=== PATIENT | female | born 1930 | race Caucasian/White ===

== ENCOUNTER → 2016-06-01 | Outpatient (REF) | payer MEDICARE, MEDICAID ==
[~2016-06-01] MED LIST: AMLO10TA2 PO; ASPI81TA PO; ATOR40TA PO; ATRO1OPD OD; CARV6.25 PO; CEFD300CAP PO; DORZ2OPD OS; FURO40TA2 PO; HYDR10TAB PO; ICAPCAP PO; IRBE300T10 PO; LOTE0.5S OS; MAPA325T2 PO; OMEP20CA3 PO; REST0.05 OU; SERT-138 PO; SPIR25TA2 PO; [UNRECOGNIZED DRUG - CODE] OU
[2016-06-01 10:07] LABS: ANION GAP 11 MEQ/L (8-16); BLOOD UREA NITROGEN 15 MG/DL (7-18); CALCIUM LEVEL 9.1 MG/DL (8.8-10.2); CARBON DIOXIDE LEVEL 27 MEQ/L (21-32); CHLORIDE LEVEL 106 MEQ/L (98-107); CREATININE FOR GFR 0.87 MG/DL (0.55-1.02); GLOMERULAR FILTRATION RATE > 60.0 (>32); GLUCOSE, FASTING 121 MG/DL (83-110); POTASSIUM SERUM 4.2 MEQ/L (3.5-5.1); SODIUM LEVEL 144 MEQ/L (136-145)
== END ==
LOC: SKLAB5 08:49
PROVIDERS: ATTEND Family Medicine
DX: I50.9 Heart failure, unspecified (principal)

== ENCOUNTER → 2016-06-29 | Outpatient (REF) | payer MEDICARE, MEDICAID ==
[2016-06-29 09:03] LABS: ANION GAP 6 MEQ/L (8-16); BLOOD UREA NITROGEN 11 MG/DL (7-18); CALCIUM LEVEL 8.6 MG/DL (8.8-10.2); CARBON DIOXIDE LEVEL 30 MEQ/L (21-32); CHLORIDE LEVEL 109 MEQ/L (98-107); GLOMERULAR FILTRATION RATE > 60.0 (>32); GLUCOSE, FASTING 86 MG/DL (83-110); POTASSIUM SERUM 4.4 MEQ/L (3.5-5.1); SODIUM LEVEL 145 MEQ/L (136-145)
== END ==
LOC: SKLAB5 08:28
PROVIDERS: ATTEND Family Medicine
DX: I50.9 Heart failure, unspecified (principal)

== ENCOUNTER → 2016-08-29 | Outpatient (REF) | payer MEDICARE, MEDICAID ==
[2016-08-29 08:46] LABS: ANION GAP 8 MEQ/L (8-16); BLOOD UREA NITROGEN 17 MG/DL (7-18); CALCIUM LEVEL 8.7 MG/DL (8.8-10.2); CARBON DIOXIDE LEVEL 25 MEQ/L (21-32); CHLORIDE LEVEL 108 MEQ/L (98-107); CREATININE FOR GFR 0.88 MG/DL (0.55-1.02); GLOMERULAR FILTRATION RATE > 60.0 (>32); GLUCOSE, FASTING 107 MG/DL (83-110); POTASSIUM SERUM 4.1 MEQ/L (3.5-5.1); SODIUM LEVEL 141 MEQ/L (136-145); URIC ACID 8.2 MG/DL (2.6-6.0)
== END ==
LOC: SKLAB5 09:20
PROVIDERS: ATTEND Family Medicine
DX: N19 Unspecified kidney failure (principal)

== ENCOUNTER → 2016-09-03 | Outpatient (REF) | payer MEDICARE, MEDICAID | LOC: SKLAB5 11:50 | PROVIDERS: ATTEND Family Medicine | DX: R30.0 Dysuria (principal) ==

== ENCOUNTER → 2016-11-09 | Outpatient (REF) | payer MEDICARE, MEDICAID ==
[2016-11-09 10:39] LABS: ANION GAP 6 MEQ/L (8-16); BLOOD UREA NITROGEN 17 MG/DL (7-18); CALCIUM LEVEL 8.7 MG/DL (8.8-10.2); CARBON DIOXIDE LEVEL 26 MEQ/L (21-32); CHLORIDE LEVEL 106 MEQ/L (98-107); CREATININE FOR GFR 0.88 MG/DL (0.55-1.02); GLOMERULAR FILTRATION RATE > 60.0 (>32); GLUCOSE, FASTING 152 MG/DL (83-110); SODIUM LEVEL 138 MEQ/L (136-145)
== END ==
LOC: SKLAB5 07:20
PROVIDERS: ATTEND Family Medicine
DX: I50.9 Heart failure, unspecified (principal)

== ENCOUNTER → 2016-11-15 | Outpatient (REF) | payer MEDICARE, MEDICAID ==
[2016-11-15 13:11] LABS: BASO % 0.2 % (0.0-1.0); EOS # 0.1 K/mm3 (0.0-0.50); LARGE UNSTAINED CELL # 0.1 K/mm3 (0.0-0.4); LARGE UNSTAINED CELL % 1.7 % (0.0-4.0); LYMPH # 1.1 K/mm3 (1.5-4.5); LYMPH % 13.9 % (24.0-44.0); MEAN CORPUSCULAR HEMOGLOBIN 23.3 pg (27.0-33.0); MEAN CORPUSCULAR HGB CONC 29.9 g/dl (32.0-36.5); MEAN CORPUSCULAR VOLUME 77.7 fl (80.0-96.0); MONO # 0.4 K/mm3 (0.0-0.8); MONO % 5.6 % (0.0-5.0); NEUTROPHILS # 5.3 K/mm3 (1.8-7.7); NEUTROPHILS % 76.6 % (36.0-66.0); PLATELET COUNT, AUTOMATED 233 k/mm3 (150-450); RED CELL DISTRIBUTION WIDTH 16.5 % (11.5-14.5)
[2016-11-15 13:35] LABS: ANION GAP 8 MEQ/L (8-16); BLOOD UREA NITROGEN 15 MG/DL (7-18); CARBON DIOXIDE LEVEL 25 MEQ/L (21-32); CHLORIDE LEVEL 107 MEQ/L (98-107); CREATININE FOR GFR 0.85 MG/DL (0.55-1.02); GLOMERULAR FILTRATION RATE > 60.0 (>32); GLUCOSE, FASTING 114 MG/DL (83-110); POTASSIUM SERUM 4.6 MEQ/L (3.5-5.1); SODIUM LEVEL 140 MEQ/L (136-145)
== END ==
LOC: SKLAB5 11:52
PROVIDERS: ATTEND Family Medicine
DX: N39.0 Urinary tract infection, site not specified (principal)

== ENCOUNTER → 2016-11-17 | Outpatient (REF) | payer MEDICARE, MEDICAID | LOC: SKLAB5 06:55 | PROVIDERS: ATTEND Family Medicine | DX: F29 Unspecified psychosis not due to a substance or known physiological condition (principal); Z79.899 Other long term (current) drug therapy ==

== ENCOUNTER → 2016-11-30 | Outpatient (REF) | payer MEDICARE, MEDICAID ==
[~2016-11-30] MED LIST changes: -ATOR40TA PO; +ATOR40TA75 PO
[2016-11-30 10:16] LABS: MEAN CORPUSCULAR HEMOGLOBIN 23.2 pg (27.0-33.0); MEAN CORPUSCULAR HGB CONC 29.7 g/dl (32.0-36.5); MEAN CORPUSCULAR VOLUME 78.1 fl (80.0-96.0); RED CELL DISTRIBUTION WIDTH 16.8 % (11.5-14.5); WHITE BLOOD COUNT 8.6 K/mm3 (4.0-10.0)
[2016-11-30 10:45] LABS: ANION GAP 9 MEQ/L (8-16); BLOOD UREA NITROGEN 16 MG/DL (7-18); CALCIUM LEVEL 8.2 MG/DL (8.8-10.2); CARBON DIOXIDE LEVEL 21 MEQ/L (21-32); CHLORIDE LEVEL 108 MEQ/L (98-107); CREATININE FOR GFR 0.86 MG/DL (0.55-1.02); GLOMERULAR FILTRATION RATE > 60.0 (>32); GLUCOSE, FASTING 115 MG/DL (83-110); POTASSIUM SERUM 4.2 MEQ/L (3.5-5.1); SODIUM LEVEL 138 MEQ/L (136-145); URIC ACID 6.6 MG/DL (2.6-6.0)
== END ==
LOC: SKLAB5 08:25
PROVIDERS: ATTEND Family Medicine
DX: E26.9 Hyperaldosteronism, unspecified (principal); N19 Unspecified kidney failure; F03.90 Unspecified dementia, unspecified severity, without behavioral disturbance, psychotic disturbance, mood disturbance, and anxiety

== ENCOUNTER → 2016-12-20 | Outpatient (REF) | payer MEDICARE, MEDICAID | LOC: SKLAB5 22:28 | PROVIDERS: ATTEND Family Medicine | DX: R41.82 Altered mental status, unspecified (principal) ==

== ENCOUNTER → 2016-12-28 | Outpatient (REF) | payer MEDICARE, MEDICAID | LOC: SKLAB5 08:00 | PROVIDERS: ATTEND Family Medicine | DX: Z79.899 Other long term (current) drug therapy (principal) ==

== ENCOUNTER → 2017-02-19 | Outpatient (REF) | payer MEDICARE, MEDICAID | LOC: SKLAB5 14:00 | PROVIDERS: ATTEND Family Medicine | DX: R30.9 Painful micturition, unspecified (principal) ==

== ENCOUNTER → 2017-02-19 | Outpatient (REF) | payer MEDICARE, MEDICAID | LOC: SKLAB5 22:11 | PROVIDERS: ATTEND Family Medicine | DX: R30.9 Painful micturition, unspecified (principal) ==

== ENCOUNTER → 2017-03-01 | Outpatient (REF) | payer MEDICARE, MEDICAID ==
[2017-03-01 09:45] LABS: ANION GAP 8 MEQ/L (8-16); BLOOD UREA NITROGEN 12 MG/DL (7-18); CALCIUM LEVEL 8.9 MG/DL (8.8-10.2); CARBON DIOXIDE LEVEL 28 MEQ/L (21-32); CHLORIDE LEVEL 104 MEQ/L (98-107); CREATININE FOR GFR 0.65 MG/DL (0.55-1.02); GLOMERULAR FILTRATION RATE > 60.0 (>32); GLUCOSE, FASTING 82 MG/DL (83-110); POTASSIUM SERUM 4.4 MEQ/L (3.5-5.1); SODIUM LEVEL 140 MEQ/L (136-145); URIC ACID 4.9 MG/DL (2.6-6.0)
== END ==
LOC: SKLAB5 08:46
PROVIDERS: ATTEND Family Medicine
DX: I11.0 Hypertensive heart disease with heart failure (principal); I50.9 Heart failure, unspecified; M10.9 Gout, unspecified

== ENCOUNTER → 2017-05-06 | Outpatient (REF) | payer MEDICARE, MEDICAID | LOC: SKLAB5 21:08 | PROVIDERS: ATTEND Family Medicine | DX: R35.0 Frequency of micturition (principal); R30.0 Dysuria; R39.15 Urgency of urination ==

== ENCOUNTER → 2017-05-31 | Outpatient (REF) | payer MEDICARE, MEDICAID ==
[2017-05-31 09:06] LABS: HEMATOCRIT 29.3 % (36.0-47.0); HEMOGLOBIN 8.4 g/dl (12.0-16.0); MEAN CORPUSCULAR HEMOGLOBIN 22.6 pg (27.0-33.0); MEAN CORPUSCULAR HGB CONC 28.7 g/dl (32.0-36.5); MEAN CORPUSCULAR VOLUME 78.8 fl (80.0-96.0); PLATELET COUNT, AUTOMATED 188 10^3/uL (150-450); RED BLOOD COUNT 3.72 10^6/uL (4.00-5.40); RED CELL DISTRIBUTION WIDTH 16.9 % (11.5-14.5); WHITE BLOOD COUNT 6.6 10^3/uL (4.0-10.0)
[2017-05-31 09:25] LABS: ANION GAP 7 MEQ/L (8-16); BLOOD UREA NITROGEN 23 MG/DL (7-18); CALCIUM LEVEL 8.8 MG/DL (8.8-10.2); CARBON DIOXIDE LEVEL 25 MEQ/L (21-32); CHLORIDE LEVEL 109 MEQ/L (98-107); CHOLESTEROL LEVEL 207 MG/DL (<200); CHOLESTEROL RISK RATIO 5.048 (<5); CREATININE FOR GFR 0.92 MG/DL (0.55-1.02); GLOMERULAR FILTRATION RATE > 60.0 (>32); GLUCOSE, FASTING 139 MG/DL (83-110); HDL CHOLESTEROL 41 MG/DL (>40); NON-HDL-C 166 MG/DL; POTASSIUM SERUM 4.2 MEQ/L (3.5-5.1); SODIUM LEVEL 141 MEQ/L (136-145); TRIGLYCERIDES LEVEL 210 MG/DL (<150); URIC ACID 5.6 MG/DL (2.6-6.0)
== END ==
LOC: SKLAB5 07:53
DX: F03.90 Unspecified dementia, unspecified severity, without behavioral disturbance, psychotic disturbance, mood disturbance, and anxiety (principal); I50.9 Heart failure, unspecified; R56.9 Unspecified convulsions; E78.00 Pure hypercholesterolemia, unspecified
CPT/HCPCS: 84550

== ENCOUNTER → 2017-08-30 | Outpatient (REF) | payer MEDICARE, MEDICAID ==
[2017-08-30 08:39] LABS: ANION GAP 5 MEQ/L (8-16); BLOOD UREA NITROGEN 21 MG/DL (7-18); CALCIUM LEVEL 8.6 MG/DL (8.8-10.2); CARBON DIOXIDE LEVEL 25 MEQ/L (21-32); CHLORIDE LEVEL 112 MEQ/L (98-107); CREATININE FOR GFR 0.81 MG/DL (0.55-1.30); GLOMERULAR FILTRATION RATE > 60.0 (>32); GLUCOSE, FASTING 97 MG/DL (70-100); POTASSIUM SERUM 4.7 MEQ/L (3.5-5.1); SODIUM LEVEL 142 MEQ/L (136-145); URIC ACID 5.1 MG/DL (2.6-6.0)
== END ==
LOC: SKLAB5 07:35
DX: I50.9 Heart failure, unspecified (principal); M10.9 Gout, unspecified
CPT/HCPCS: 84550

== ENCOUNTER → 2017-09-25 | Outpatient (REF) | payer MEDICARE, MEDICAID ==
[2017-09-25 13:18] LABS: APPEARANCE, URINE TURBID (CLEAR); BACTERIA, URINE AUTO 3+ (NEGATIVE); BILIRUBIN, URINE AUTO NEGATIVE (NEGATIVE); BLOOD, URINE BLOOD 2+ (NEGATIVE); COLOR, URINE AMBER (YELLOW); GLUCOSE, URINE (UA) AUTO NEGATIVE (NEGATIVE); KETONE, URINE AUTO NEGATIVE (NEGATIVE); LEUKOCYTE ESTERASE, URINE AUTO 3+ (NEGATIVE); MUCUS, URINE LARGE (NEGATIVE); NITRITE, URINE AUTO NEGATIVE (NEGATIVE); PROTEIN, URINE AUTO 2+ mg/dL (NEGATIVE); RBC, URINE AUTO 61 /HPF (0-3); SPECIFIC GRAVITY URINE AUTO 1.009 (1.002-1.035); SQUAMOUS EPITHELIAL CELL UR AU 7 /HPF (0-6); UROBILINOGEN, URINE AUTO 0.2 mg/dL (0.0-2.0); WBC, URINE AUTO TNTC /HPF (0-3)
== END ==
LOC: SKLAB5 12:41
DX: R30.0 Dysuria (principal)
CPT/HCPCS: 81001

== ENCOUNTER → 2017-11-29 | Outpatient (REF) | payer MEDICARE, MEDICAID ==
[2017-11-29 08:46] LABS: HEMATOCRIT 28.8 % (36.0-47.0); HEMOGLOBIN 8.1 g/dl (12.0-15.5); MEAN CORPUSCULAR HEMOGLOBIN 23.8 pg (27.0-33.0); MEAN CORPUSCULAR HGB CONC 28.1 g/dl (32.0-36.5); MEAN CORPUSCULAR VOLUME 84.7 fl (80.0-96.0); PLATELET COUNT, AUTOMATED 185 10^3/uL (150-450); RED CELL DISTRIBUTION WIDTH 17.2 % (11.5-14.5); WHITE BLOOD COUNT 5.3 10^3/uL (4.0-10.0)
[2017-11-29 09:01] LABS: ANION GAP 6 MEQ/L (8-16); BLOOD UREA NITROGEN 16 MG/DL (7-18); CALCIUM LEVEL 8.5 MG/DL (8.8-10.2); CARBON DIOXIDE LEVEL 26 MEQ/L (21-32); CHLORIDE LEVEL 112 MEQ/L (98-107); CREATININE FOR GFR 0.82 MG/DL (0.55-1.30); GLOMERULAR FILTRATION RATE > 60.0 (>32); GLUCOSE, FASTING 119 MG/DL (70-100); SODIUM LEVEL 144 MEQ/L (136-145); URIC ACID 5.4 MG/DL (2.6-6.0)
== END ==
LOC: SKLAB5 07:21
DX: I50.9 Heart failure, unspecified (principal); J44.9 Chronic obstructive pulmonary disease, unspecified; F03.90 Unspecified dementia, unspecified severity, without behavioral disturbance, psychotic disturbance, mood disturbance, and anxiety
CPT/HCPCS: 84550

== ENCOUNTER → 2017-12-21 | Outpatient (REF) | payer MEDICARE, MEDICAID ==
[2017-12-22 10:28] LABS: APPEARANCE, URINE TURBID (CLEAR); BACTERIA, URINE AUTO 3+ (NEGATIVE); BILIRUBIN, URINE AUTO NEGATIVE (NEGATIVE); BLOOD, URINE BLOOD 2+ (NEGATIVE); COLOR, URINE YELLOW (YELLOW); GLUCOSE, URINE (UA) AUTO NEGATIVE (NEGATIVE); KETONE, URINE AUTO NEGATIVE (NEGATIVE); LEUKOCYTE ESTERASE, URINE AUTO 3+ (NEGATIVE); MUCUS, URINE SMALL (NEGATIVE); NITRITE, URINE AUTO NEGATIVE (NEGATIVE); PROTEIN, URINE AUTO 1+ mg/dL (NEGATIVE); RBC, URINE AUTO 6 /HPF (0-3); SPECIFIC GRAVITY URINE AUTO 1.012 (1.002-1.035); SQUAMOUS EPITHELIAL CELL UR AU 5 /HPF (0-6); UROBILINOGEN, URINE AUTO 0.2 mg/dL (0.0-2.0); WBC, URINE AUTO TNTC /HPF (0-3)
== END ==
LOC: M OPP 12-22 09:39 → SKLAB5 22:00
DX: N39.0 Urinary tract infection, site not specified (principal)
CPT/HCPCS: 81001

== ENCOUNTER → 2017-12-27 | Outpatient (REF) | payer MEDICARE, MEDICAID ==
[2017-12-27 08:43] LABS: FERRITIN 17 NG/ML (8-252)
== END ==
LOC: SKLAB5 09:23
DX: D64.9 Anemia, unspecified (principal)
CPT/HCPCS: 82728

== ENCOUNTER → 2018-02-28 | Outpatient (REF) | payer MEDICARE, MEDICAID ==
[2018-02-28 09:52] LABS: ANION GAP 8 MEQ/L (8-16); BLOOD UREA NITROGEN 19 MG/DL (7-18); CALCIUM LEVEL 8.4 MG/DL (8.8-10.2); CARBON DIOXIDE LEVEL 22 MEQ/L (21-32); CHLORIDE LEVEL 111 MEQ/L (98-107); CREATININE FOR GFR 1.18 MG/DL (0.55-1.30); GLOMERULAR FILTRATION RATE 46.2 (>32); GLUCOSE, FASTING 123 MG/DL (70-100); POTASSIUM SERUM 4.6 MEQ/L (3.5-5.1); SODIUM LEVEL 141 MEQ/L (136-145); URIC ACID 5.4 MG/DL (2.6-6.0)
== END ==
LOC: SKLAB5 08:13
DX: I50.9 Heart failure, unspecified (principal)
CPT/HCPCS: 84550

== ENCOUNTER → 2018-03-24 | Outpatient (REF) | payer MEDICARE, MEDICAID | LOC: M RAD 19:03 | DX: M25.552 Pain in left hip (principal) ==

== ENCOUNTER → 2018-03-24 | Outpatient (REF) | payer MEDICARE, MEDICAID | LOC: M RAD 19:35 | DX: M79.622 Pain in left upper arm (principal); M25.512 Pain in left shoulder; M25.552 Pain in left hip | CPT/HCPCS: 73030 ==

== ENCOUNTER → 2018-04-15 | Outpatient (REF) | payer MEDICARE, MEDICAID ==
[2018-04-15 18:42] LABS: APPEARANCE, URINE TURBID (CLEAR); COLOR, URINE YELLOW (YELLOW)
[2018-04-15 18:43] LABS: GLUCOSE, URINE (UA) AUTO 1+ mg/dL (NEGATIVE); KETONE, URINE AUTO NEGATIVE (NEGATIVE); PROTEIN, URINE AUTO 1+ mg/dL (NEGATIVE)
[2018-04-15 18:44] LABS: BILIRUBIN, URINE AUTO NEGATIVE (NEGATIVE); BLOOD, URINE BLOOD 3+ (NEGATIVE); LEUKOCYTE ESTERASE, URINE AUTO 3+ (NEGATIVE); NITRITE, URINE AUTO POSITIVE (NEGATIVE); UROBILINOGEN, URINE AUTO 0.2 mg/dL (0.0-2.0)
[2018-04-15 18:45] LABS: MICROSCOPIC INDICATED? YES (NO)
[2018-04-15 18:46] LABS: BACTERIA, URINE AUTO 3+ (NEGATIVE); RBC, URINE AUTO TNTC /HPF (0-3); WBC, URINE AUTO TNTC /HPF (0-3)
[2018-04-15 18:54] LABS: RBC, URINE TNTC /hpf (0-3); SQUAMOUS EPITHELIAL CELL URINE SMALL AMOUNT /hpf (SMALL AMT); WBC, URINE TNTC /hpf (0-3)
[2018-04-15 18:55] LABS: BACTERIA, URINE LARGE AMOUNT; HYALINE CAST, URINE NONE SEEN /lpf (0-1); MICROSCOPIC EXAM UNSPUN
== END ==
LOC: SKLAB5 18:07
DX: R39.89 Other symptoms and signs involving the genitourinary system (principal)
CPT/HCPCS: 81001

== ENCOUNTER → 2018-04-24 | Outpatient (REF) | payer MEDICARE, MEDICAID ==
[2018-04-24 13:47] LABS: BASO % 0.1 % (0.0-1.0); HEMATOCRIT 43.5 % (36.0-47.0); HEMOGLOBIN 12.9 g/dl (12.0-15.5); IMMATURE GRANULOCYTE % 0.7 % (0-3.0); LYMPH # 0.9 10^3/uL (1.5-4.5); LYMPH % 5.5 % (24.0-44.0); MEAN CORPUSCULAR HEMOGLOBIN 30.5 pg (27.0-33.0); MEAN CORPUSCULAR HGB CONC 29.7 g/dl (32.0-36.5); MEAN CORPUSCULAR VOLUME 102.8 fl (80.0-96.0); MONO # 0.9 10^3/uL (0.0-0.8); MONO % 5.3 % (0.0-5.0); NEUTROPHILS # 14.8 10^3/uL (1.8-7.7); NEUTROPHILS % 88.4 % (36.0-66.0); PLATELET COUNT, AUTOMATED 316 10^3/uL (150-450); RED BLOOD COUNT 4.23 10^6/uL (4.00-5.40); RED CELL DISTRIBUTION WIDTH 16.5 % (11.5-14.5); WHITE BLOOD COUNT 16.7 10^3/uL (4.0-10.0)
[2018-04-24 14:27] LABS: ALBUMIN 3.5 GM/DL (3.2-5.2); ALKALINE PHOSPHATASE 137 U/L (45-117); ALT/SGPT 16 U/L (12-78); ANION GAP 7 MEQ/L (8-16); AST/SGOT 21 U/L (7-37); BILIRUBIN,TOTAL 0.2 MG/DL (0.2-1.0); BLOOD UREA NITROGEN 91 MG/DL (7-18); CALCIUM LEVEL 9.7 MG/DL (8.8-10.2); CARBON DIOXIDE LEVEL 14 MEQ/L (21-32); CHLORIDE LEVEL 120 MEQ/L (98-107); CREATININE FOR GFR 2.83 MG/DL (0.55-1.30); GLOMERULAR FILTRATION RATE 16.8 (>32); GLUCOSE, FASTING 166 MG/DL (70-100); SODIUM LEVEL 141 MEQ/L (136-145); TOTAL PROTEIN 7.4 GM/DL (6.4-8.2)
== END ==
LOC: SKLAB5 07:15
DX: R41.89 Other symptoms and signs involving cognitive functions and awareness (principal)
CPT/HCPCS: 80053